=== PATIENT | female | born 1960 | race Asian ===

== ENCOUNTER 2025-04-20 06:51 | Emergency (ER) | payer MEDICARE, SELFPAY ==
--- NOTE | 2025-04-20 06:55 | DI.RAD.S_ITS ---
PROCEDURE: XR CHEST 1V INDICATIONS: chest pain TECHNIQUE: One view of the chest was acquired. COMPARISON: None. FINDINGS: Surgical changes and devices: Pacemaker and cardiac monitoring device. Lungs and pleura: Lungs are clear. No pleural effusions or pneumothorax. Mediastinum: Mediastinal contours appear normal. Heart size is normal. Bones and chest wall: No suspicious bony lesions. Overlying soft tissues appear unremarkable. IMPRESSION: No acute pulmonary process. Dictated by: Mally Monique M.D. on 04/20/2025 at 8:09 Approved by: Mally Monique M.D. on 04/20/2025 at 8:09
[2025-04-20 06:57] VITALS: BP 147/66; PULSE 61; RESP 20; TEMP 36.2; O2SAT 100; BMI 19.1
--- NOTE | 2025-04-20 06:59 | EKG_ITS ---
[address] [address] Test Date: 2025-04-20 Pat Name: Meli Stovall Department: Room: Gender: Female Parquetry Layer: yamilka montoya : 1960 Requested By: Order Number: [id number] Reading MD: Pramod Gibbs MD Measurements Intervals [place] Rate: 62 P: 72 [place]: 224 QRS: 95 QRSD: 66 T: 68 QT: 416 QTc: 422 Interpretive Statements Atrial-paced rhythm with prolonged AV conduction Septal infarct , age undetermined Lateral infarct , age undetermined NO PRIOR TRACING Electronically Signed On 04-21-2025 7:24:32 PDT by Pramod Gibbs MD
--- NOTE | 2025-04-20 07:07 | ED_ITS ---
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 December and January she weighed 207 and she is now down to 171.6 now. Patient was originally short of breath but feels better now with her breathing. Denies any leg pain leg swelling weight gain or any other radiating symptoms or diaphoresis or nausea vomiting. She did take a anxiety pill but it did not help. States she had a thallium stress test 6 months ago that was apparently normal. Originally 8/10 it is now 1/10 after taking the BuSpar. Other than what is stated 14 point review of system is negative Review of Systems Review of Systems ROS Unobtainable: All systems reviewed & are unremarkable except as noted in HPI and below Patient History Social History Smoking Status: Never smoker Smoking Status: Never smoker Exam Narrative Exam Narrative: GENERAL: [65] year old patient appears stated age. Well-developed patient, in mild distress. HEAD: Atraumatic. Normocephalic. EYES: Pupils equal round and reactive. Extraocular motions intact. No scleral icterus. No injection or drainage. NECK: Trachea midline. Non tender CARDIOVASCULAR: Regular rate and rhythm without murmurs, gallops, or rubs. RESPIRATORY: Clear to auscultation. Breath sounds equal bilaterally. No wheezes, rales, or rhonchi. GASTROINTESTINAL: Abdomen soft, non-tender, nondistended. EXTREMITIES: No edema or joint tenderness. BACK: Nontender without deformity or crepitance. No flank tenderness. NEURO: AOx3. SKIN: No rash or erythema of visible areas Initial Vital Signs Initial Vital Signs: Vital Signs Temperature 97.1 F L 04/20/25 06:57 Pulse Rate 61 04/20/25 06:57 Respiratory Rate 20 04/20/25 06:57 Blood Pressure 147/66 H 04/20/25 06:57 Pulse Oximetry 100 04/20/25 06:57 Oxygen Delivery Method Room Air 04/20/25 06:57 Scores HEART Score Heart Score history: Slightly Suspicious Heart Score EKG: Non-Specific repolarization disturbance Heart Score Age: > or = 65 years old Heart Score risk factors: > 3 risk factors or hx of atherosclerotic disease Heart Score troponin: < or = to normal limit Heart Score Total: 5 Course Orders Ordered: ED Orders 04/20/25 06:54 EKG-12 Lead Stat 04/20/25 06:55 XR chest 1V Stat 04/20/25 07:00 Complete Blood Count AUTO DIFF Stat Comprehensive Metabolic Panel Stat Lipase Stat MAG [Magnesium] Stat PTT Partial Thromboplastin Fran Stat Prothrombin Time INR Stat Troponin & CK Cardiac Panel Stat 04/20/25 08:48 Trop I [Troponin I] Stat 04/20/25 09:00 EKG-12 Lead Stat Discontinued Medications Aspirin (Aspirin 81 Mg Chew Tab) 324 mg PO NOW ONE Stop: 04/20/25 06:56 Last Admin: 04/20/25 07:48 Dose: Not Given Documented By: BT Vital Signs Vital signs: Vital Signs - 8 hr 04/20/25 06:57 04/20/25 08:48 Temperature 97.1 F L Pulse Rate 61 67 Respiratory Rate 20 18 Blood Pressure 147/66 H 147/66 H Pulse Oximetry 100 99 Oxygen Delivery Method Room Air Room Air MDM - Chest Pain Lab Data 04/20/25 07:00 04/20/25 07:00 Labs: Lab Results 04/20/25 Range/Units 07:00 WBC 4.3 L (4.5-11.0) X10^3/uL RBC 4.31 (4.0-5.2) X10^6/uL Hgb 13.3 (12.0-16.0) g/dL Hct 39.9 (36-46) % MCV 92.7 (80-100) fL MCH 30.8 (26-34) PG MCHC 33.3 (30-36) % RDW 12.7 (11.6-14.8) % Plt Count 224 (150-400) X10^3/uL Neut % (Auto) 57.4 (50-75) % Lymph % (Auto) 30.3 (25-40) % [place] % (Auto) 7.4 (3-14) % Eos % (Auto) 2.9 (2-4) % Baso % (Auto) 2.0 (0-2) % Neut # (Auto) 2500 (5358-4624) /uL Lymph # (Auto) 1300 (3535-2670) /uL [place] # (Auto) 300 (0-900) /uL Eos # (Auto) 100 (0-450) /uL Baso # (Auto) 100 (0-100) /uL PT 13.1 H (9.4-12.5) SECONDS INR 1.2 (0.9-1.3) APTT 45 H (25.1-36.5) SECONDS Sodium 140 (137-145) mmol/L Potassium 4.0 (3.4-5.1) mmol/L Chloride 108 H (98-107) mmol/L Carbon Dioxide 27 (22-32) mmol/L BUN 17 (7-17) mg/dL Creatinine 0.86 (0.52-1.04) mg/dL Estimated GFR > 60 (>60) mL/min BUN/Creatinine Ratio 19.8 (6-22) Glucose 95 (70-99) mg/dL Calcium 9.4 (8.4-10.2) mg/dL Magnesium 2.1 (1.6-2.3) mg/dL Total Bilirubin 0.8 (0.2-1.3) mg/dL AST 48 H (14-36) IU/L ALT 53 H (<35) IU/L Alkaline Phosphatase 45 (38-126) U/L Total Creatine Kinase 138 H (30-135) U/L Troponin I < 0.012 (0.01-0.034) ng/mL Total Protein 7.2 (6.3-8.2) g/dL Albumin 4.5 (3.5-5.0) g/dL Globulin 2.7 (1.7-4.1) g/dL Albumin/Globulin Ratio 1.7 (1.0-2.8) Lipase 190 (23-300) U/L Imaging Data Chest x-ray: Radiologist's Impression: [address] [address] XRay Report Signed Patient: Meli Stovall MR#: [id number] : 1960 Acct:[id number] Age/Sex: 65 / F Date of Service: 04/20/25 Loc: ED Accession Number: [id number] Procedure: XR chest 1V Ordering Provider: Сергей Samaniego D.O. PROCEDURE: XR CHEST 1V INDICATIONS: chest pain TECHNIQUE: One view of the chest was acquired. COMPARISON: None. FINDINGS: Surgical changes and devices: Pacemaker and cardiac monitoring device. Lungs and pleura: Lungs are clear. No pleural effusions or pneumothorax. Mediastinum: Mediastinal contours appear normal. Heart size is normal. Bones and chest wall: No suspicious bony lesions. Overlying soft tissues appear unremarkable. IMPRESSION: No acute pulmonary process. ECG Data Interpretation: A-Paced HR 62 GA 224 QRS [address]-t wave change No previous EKG to compare against MDM Narrative Medical decision making narrative: Vital signs, nurse triage note, medication list, previous ER visits, and all imaging studies reviewed. Two sets of troponin are normal at less than 0.012 both EKG showed patient is atrial paced with no ST T wave changes heart rate of 60. Chest x-ray showed no acute process Differential diagnosis include STEMI, NSTEMI, GERD, anxiety, unstable angina, costochondritis chest wall pain. Will have patient follow up with PCP tomorrow or this week for re-evaluation and follow up. Discharge Plan Departure Patient Disposition: Home Clinical Impression: Chest pain Instructions: DI for Chest Pain Activity Restrictions/Additional Instructions: Return with new or worsening symptoms. Follow up with PCP tomorrow or this week for follow up. Referrals: Zehra Garcia DO [Primary Care Provider, Family Practice] Stand Alone Forms: Patient Portal/API
[2025-04-20 07:09] LABS: Add Manual Diff / Slide Review NO; Basophils Absolute Auto 100 /uL (0-100); Eosinophils Absolute Auto 100 /uL (0-450); Eosinophils Percent Auto 2.9 % (2-4); Hematocrit 39.9 % (36-46); Hemoglobin 13.3 g/dL (12.0-16.0); Lymphocytes Absolute Auto 1300 /uL (1100-4500); Lymphocytes Percent Auto 30.3 % (25-40); Mean Corpuscular HGB Conc 33.3 % (30-36); Mean Corpuscular Hemoglobin 30.8 PG (26-34); Mean Corpuscular Volume 92.7 fL (80-100); Monocytes Absolute Auto 300 /uL (0-900); Monocytes Percent Auto 7.4 % (3-14); Neutrophils Absolute Auto 2500 /uL (1500-7000); Neutrophils Percent Auto 57.4 % (50-75); Platelet Count 224 X10^3/uL (150-400); Red Blood Cell Count 4.31 X10^6/uL (4.0-5.2); Red Cell Distribution Width 12.7 % (11.6-14.8); White Blood Cell Count 4.3 X10^3/uL (4.5-11.0)
[2025-04-20 07:15] LABS: INR 1.2 (0.9-1.3); Prothrombin Time 13.1 SECONDS (9.4-12.5)
[2025-04-20 07:17] LABS: PTT Partial Thromboplastin Tim 45 SECONDS (25.1-36.5)
[2025-04-20 07:20] LABS: Alanine Aminotransferase 53 IU/L (<35); Albumin 4.5 g/dL (3.5-5.0); Albumin Globulin Ratio 1.7 (1.0-2.8); Alkaline Phosphatase 45 U/L (38-126); Aspartate Aminotransferase 48 IU/L (14-36); BUN Creatinine Ratio 19.8 (6-22); Bilirubin Total 0.8 mg/dL (0.2-1.3); Blood Urea Nitrogen 17 mg/dL (7-17); Calcium 9.4 mg/dL (8.4-10.2); Carbon Dioxide 27 mmol/L (22-32); Chloride 108 mmol/L (98-107); Creatine Kinase 138 U/L (30-135); Estimated Glomerular Filt Rate > 60 mL/min (>60); Globulin 2.7 g/dL (1.7-4.1); Glucose 95 mg/dL (70-99); HEMOLYSIS < 15 (0-50); Lipase 190 U/L (23-300); Magnesium 2.1 mg/dL (1.6-2.3); Sodium 140 mmol/L (137-145); Total Protein 7.2 g/dL (6.3-8.2)
[2025-04-20 07:31] LABS: Troponin I < 0.012 ng/mL (0.01-0.034)
[2025-04-20 08:24] VITALS: PULSE 60; RESP 16; O2SAT 99
[2025-04-20 08:30] VITALS: PULSE 60; RESP 19; O2SAT 98
[2025-04-20 08:48] VITALS: BP 147/66; PULSE 67; RESP 18; O2SAT 99
[2025-04-20 08:53] VITALS: BP 130/60; PULSE 70; RESP 24; O2SAT 99
--- NOTE | 2025-04-20 09:00 | EKG_ITS ---
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
[2025-04-20 09:20] LABS: Troponin I < 0.012 ng/mL (0.01-0.034)
[2025-04-20 09:46] VITALS: BP 115/60; PULSE 62; RESP 16; TEMP 36.9; O2SAT 98
== END 2025-04-20 09:48 | disposition home or self-care (01) ==
PROVIDERS: Student in an Organized Health Care Education/Training Program; Emergency Provider Family Medicine; PCP Family Medicine
DX: R07.9 Chest pain, unspecified (principal); Z86.73 Personal history of transient ischemic attack (TIA), and cerebral infarction without residual deficits
CPT/HCPCS: 36415; 71045; 80053; 82550; 83690; 83735; 84484; 85025; 85610; 85730; 93005; 93010; 99284